=== PATIENT | female | born 1995 | race Caucasian/White ===

== ENCOUNTER 2019-08-27 18:32 | Emergency (ER) | payer BC, SELFPAY ==
[2019-08-27 18:38] VITALS: BP 114/65; PULSE 107; RESP 18; TEMP 36.8; O2SAT 99; BMI 28.1
--- NOTE | 2019-08-27 18:58 | US_ITS ---
WS: [id number] OB ultrasound, 08/27/2019 Clinical Data: Pain Comparison: None. Findings: There is a single intrauterine in a variable lie. The placenta is posterior and grade 0. Th e heart rate is 157 beats per minute. The cervix is closed. Measurements of growth and development: FL: 1.6 cm The estimated gestational age is 14w6d with an ARTURO of approximately 02/19/2020. US/ OB limited [id number] Impression: 1. Single intrauterine in a variable lie.. 2. Estimated gestational age 14w6d with an ARTURO of 02/19/2020. 3. heart rate 157 beats per minute.
--- NOTE | 2019-08-27 19:04 | ED_ITS ---
Entered by Shelly Burgos, acting as scribe for Aug 27, 2019 18:32 HPI - Female Genitourinary General: Chief complaint: Vaginal Bleeding Stated complaint: VAG BLEEDING/15 WEEKS PREG Time Seen by Provider: 08/27/19 18:56 Source: patient Mode of arrival: ambulatory Limitations: no limitations History of Present Illness: HPI Narrative: 24 yo f came to the er for vaginal bleeding. Onset was today. Pt states that she is 15 weeks , pt said that this is her 3rd A1 Pt states that she has had some cramping and bleeding that started last night. in [facility] is her ob at this time. MD elicited complaint: vaginal bleeding Pertinent past history: prior miscarriages Onset (ago): day(s) (last night) Location of symptoms: vaginal Severity: mild Quality of pain: cramping Consistency: constant Vaginal bleeding: moderate Relieving factors: none Associated symptoms: Deny headache(s), syncope or vaginal bleeding Sexual activity: No Patient : Yes (15 weeks ) Review of Systems General: Reports: other (negative unless marked) Const: Denies: fever, chills, body aches, fatigue, malaise or diaphoresis Eyes: Denies: change in vision or blurry vision ENMT: Denies: throat pain, painful swallowing, hoarseness, ear pain, ear discharge, Change in hearing or nasal discharge Card: Denies: chest pain, palpitations, irregular heart rhythm, syncope, pre- syncope, shortness of breath on exertion or shortness of breath when lying down Resp: Denies: shortness of breath, productive cough, non-productive cough, wheezing, coughing up blood or chest congestion GI: Reports: cramping : Reports: vaginal bleeding Musc: Denies: neck pain, back pain, extremity pain, extremity swelling, joint pain, joint swelling, joint warmth or joint stiffness Skin/Breast: Denies: rash, skin tenderness or yellow skin Neuro: Denies: headache, numbness in extremities, weakness in extremities, changes in sensation, lack of coordination, difficulty walking, dizziness, vertigo or confusion Endo: Denies: excessive thirst, tired all the time, cold intolerance, excessive sweating, flushing or hot flashes Rolando/Lymph: Denies: easy bruising, easy bleeding, petechiae or enlarged lymph nodes All/Imm: Denies: hives, throat swelling, tongue swelling, facial swelling or acute wheezing PFSH ED PFSH: Social History Smoking and tobacco status: never smoked Physical Exam Const: COMMON NORMALS: no apparent distress, oriented x3, no limitations, healthy appearing and well nourished EXAM LIMITATIONS: no altered mental status GENERAL APPEARANCE: cooperative, well kempt and well developed ORIENTATION/CONSCIOUSNESS: Yes awake HENMT: COMMON NORMALS: normocephalic, head/scalp atraumatic, hearing grossly normal bilaterally, external ears normal, EAC's normal, external nose normal and moist oral mucous membranes HEAD & SCALP: normal to inspection, normocephalic and atraumatic FACE & SINUS: normal facial exam and face symmetric NOSE: external nose normal and nares normal EXTERNAL EAR: Yes external ears normal EXTERNAL AUDITORY CANAL: EAC's normal MOUTH: oral and palatal mucosa normal and tongue normal Eye: COMMON NORMALS: PERRL, EOMs intact bilaterally, conjunctivae normal and no scleral icterus GENERAL EYE: normal appearance of both eyes and normal light reflex CONJUNCTIVA: Yes conjunctivae normal SCLERA: sclerae normal CORNEA: Yes corneas normal PUPIL: Yes PERRL DIRECT OPHTHALMOSCOPY: Yes normal light reflex Neck/C-Spine: COMMON NORMALS: full ROM, no lymphadenopathy, supple, no meningeal signs and no JVD GENERAL: Yes normal visual inspection and Yes trachea midline CERVICAL SPINE: Yes cervical ROM normal Chest: COMMONS NORMALS: inspection of chest normal and palpation of chest normal Resp: COMMON NORMALS: normal respiratory effort, no retractions, no use of accessory muscles and clear to auscultation bilaterally EFFORT & INSPECTION: Yes able to speak in complete sentences AUSCULTATION: clear to auscultation bilaterally Cardio: COMMON NORMALS: no JVD, regular rate, regular rhythm, S1 normal heart sound, S2 normal heart sound, no gallops, no clicks, no murmurs and no rub JUGULAR VENOUS DISTENTION: no JVD RATE: regular rate RHYTHM: regular rhythm HEART SOUNDS: S1 normal and S2 normal GI: COMMON NORMALS: soft to palpation, non-tender, no hepatosplenomegaly and no masses INSPECTION: Yes normal to inspection PALPATION: Yes soft and Yes no hepatosplenomegaly : COMMON NORMALS: Yes no CVA tenderness and Yes bimanual exam normal BLADDER/KIDNEY EXAM: Yes no CVA tenderness SPECULUM EXAM - VAGINA: No vaginal bleeding SPECULUM EXAM - CERVIX: No cervical os open, Yes cervical os closed, No cervical bleeding, Yes mucoid cervix, No abnormal cervical discharge and No cervical tenderness BIMANUAL EXAM - VAGINA & UTERUS: Yes normal bimanual exam, Yes normal vaginal palpation, Yes normal cervical palpation, No cervical motion tenderness, No cervical tenderness and Yes other (Gravid uterus present.) OB/EXTERNAL & SPECULUM: No cervical os open and vaginal bleeding Back/Pelvis: COMMON NORMALS: no CVA tenderness, thoracic and lumbar spine normal to inspection, no thoracic nor lumbar tenderness and thoraco-lumbar ROM normal Extremity: COMMON NORMALS: normal to inspection, full ROM, normal capillary refill, no joint enlargement, no clubbing, cyanosis or edema and no calf tenderness Neuro: COMMON NORMALS: oriented x3, CN's II-XII intact bilaterally, moves all extremities, no focal motor deficits and no sensory deficits noted MENINGEAL SIGNS: Yes no meningeal signs Psych: COMMON NORMALS: mental status grossly normal, thought process normal, cooperative, affect normal, speech normal and activity/motor behavior normal APPEARANCE: Yes well kempt SPEECH: Yes normal speech THOUGHT PROCESS: normal thought process Skin: COMMON NORMALS: no rashes or lesions noted, skin turgor normal, no jaundice, no petechiae and no mottling GENERAL SKIN EXAM: no rashes or lesions noted and turgor normal Course Vital Signs: Vital signs: Vital Signs Temperature 98.2 F 08/27/19 18:38 Pulse Rate 107 H 08/27/19 18:38 Respiratory Rate 18 08/27/19 18:38 Blood Pressure 114/65 08/27/19 18:38 Pulse Oximetry 99 08/27/19 18:38 MDM - Female MDM Narrative: Medical decision making narrative: aJcki is a 24-year-old female who comes in with 8 hours of cramping lower pelvic pain and bleeding. The patient states the bleeding has stopped but she still has intermittent midline cramping. The pain has been intermittent and has improved since receiving IV fluids here. Patient states that overall she feels much better. I reviewed the case in full with Dr. Zamora who agrees that her ultrasound findings are reassuring and the right-sided hydronephrosis is a normal finding in . The patient's urine is contaminated so we will cover her with Keflex for possible asymptomatic bacteriuria of . The patient again feels much better and wants to follow-up with either Dr. Zamora or her doctor. We have reviewed with her at length the signs and symptoms for which to return to the ER and she states she understands all these and will follow-up as directed or return if needed. I see no evidence of ectopic , incomplete miscarriage or other life-threatening problem at this time. Differential Diagnosis: Differential diagnosis: Likely abdominal pain, acute appendicitis, calculus of kidney, constipation, diverticulitis, endometriosis, gastroenteritis, pancreatitis and small bowel obstruction Lab Data: Attestation: I reviewed the patient's lab results. Labs: Lab Results 08/27/19 08/27/19 08/27/19 Range/Units 19:03 19:03 19:05 WBC 7.9 (4.0-10.0) 10^3/ uL RBC 4.17 (4.1-5.3) 10^6/u L Hgb 11.9 (11.5-15.3) g/dL Hct 36.5 L (37.0-47.0) % MCV 87.5 (81-99) fL MCH 28.5 (28.0-34.0) pg MCHC 32.6 (30.0-36.0) g/dL RDW 12.6 (12.1-15.1) % Plt Count 205 (130-400) 10^3/c mm MPV 10.5 H (7.4-10.4) fL Neut % (Auto) 65.6 % Lymph % (Auto) 29.1 % Cotton % (Auto) 3.7 % Eos % (Auto) 0.9 % Baso % (Auto) 0.3 % Neut # (Auto) 5.2 (1.8-7.7) 10^3/u L Lymph # (Auto) 2.3 (0.8-4.8) 10^3/u L Cotton # (Auto) 0.3 (0.2-0.9) 10^3/u L Eos # (Auto) 0.1 (0.0-0.8) 10^3/u L Baso # (Auto) 0.0 (0.0-0.1) 10^3/u L Nucleated RBC % (a uto) 0 % Nucleated RBCs # 0.0 /100WBC Sodium 136 (136-145) mmol/L Potassium 3.6 (3.5-5.1) mmol/L Chloride 100 (98-107) mmol/L Carbon Dioxide 23 (22-29) mmol/L Anion Gap 16.6 (5-19) BUN 6 (6-20) mg/dL Creatinine 0.5 (0.5-0.9) mg/dL GFR Calculation 152.9 H (90-130) mL/min Glucose 118 H (65-115) mg/dL Calcium 9.4 (8.5-10.5) mg/dL Total Bilirubin 0.2 (0.15-1.2) mg/dL AST 20 (0-32) U/L ALT 24 (0-33) U/L Alkaline Phosphata se 61 (35-105) IU/L Total Protein 6.6 (6.6-8.7) g/dL Albumin 3.8 (3.5-5.2) g/dL Globulin 2.8 (1.3-4.6) g/dL Ser , [place] [address].00 mIU/mL Urine Color (Yellow) Urine Appearance (CLEAR) Urine pH (5-7) Ur Specific Gravit y (1.005-1.030) Urine Protein (Negative) Urine Glucose (UA) (Normal) Urine Ketones (Negative) Urine Blood (Negative) Urine Nitrate (Negative) Urine Bilirubin (NEGATIVE) Urine Urobilinogen (Negative) mg/dL Ur Leukocyte Mera ase (Negative) Urine RBC (0-2) /hpf Urine WBC (0-5) /hpf Ur Squamous Epith Cells (0-5) Urine Bacteria (NONE) Urine Mucus Blood Type A Positive 08/27/19 Range/Units 19:35 WBC (4.0-10.0) 10^3/ uL RBC (4.1-5.3) 10^6/u L Hgb (11.5-15.3) g/dL Hct (37.0-47.0) % MCV (81-99) fL MCH (28.0-34.0) pg MCHC (30.0-36.0) g/dL RDW (12.1-15.1) % Plt Count (130-400) 10^3/c mm MPV (7.4-10.4) fL Neut % (Auto) % Lymph % (Auto) % Cotton % (Auto) % Eos % (Auto) % Baso % (Auto) % Neut # (Auto) (1.8-7.7) 10^3/u L Lymph # (Auto) (0.8-4.8) 10^3/u L Cotton # (Auto) (0.2-0.9) 10^3/u L Eos # (Auto) (0.0-0.8) 10^3/u L Baso # (Auto) (0.0-0.1) 10^3/u L Nucleated RBC % (a uto) % Nucleated RBCs # /100WBC Sodium (136-145) mmol/L Potassium (3.5-5.1) mmol/L Chloride (98-107) mmol/L Carbon Dioxide (22-29) mmol/L Anion Gap (5-19) BUN (6-20) mg/dL Creatinine (0.5-0.9) mg/dL GFR Calculation (90-130) mL/min Glucose (65-115) mg/dL Calcium (8.5-10.5) mg/dL Total Bilirubin (0.15-1.2) mg/dL AST (0-32) U/L ALT (0-33) U/L Alkaline Phosphata se (35-105) IU/L Total Protein (6.6-8.7) g/dL Albumin (3.5-5.2) g/dL Globulin (1.3-4.6) g/dL Ser , Devon i-Qnt mIU/mL Urine Color Yellow (Yellow) Urine Appearance Clear (CLEAR) Urine pH 5 (5-7) Ur Specific Gravit y 1.025 (1.005-1.030) Urine Protein Neg (Negative) Urine Glucose (UA) Norm (Normal) Urine Ketones 1+ H (Negative) Urine Blood Neg (Negative) Urine Nitrate Negative (Negative) Urine Bilirubin Neg (NEGATIVE) Urine Urobilinogen 1 H (Negative) mg/dL Ur Leukocyte Mera ase Negative (Negative) Urine RBC None (0-2) /hpf Urine WBC 0-4 H (0-5) /hpf Ur Squamous Epith Cells 5-10 H (0-5) Urine Bacteria Trace (NONE) Urine Mucus 1+ Blood Type Imaging Data: US OB: Radiologist's impression: Pelvic ultrasound, technologist interpretation -15-week 0-day IUP with a heart rate of 158. No free fluid noted. Tubes and ovaries normal. All other findings normal. Please see formal report. US: Radiologist's impression: Technologist interpretation, renal ultrasound -mild right hydroureter otherwise normal. Please see formal report. Discharge Plan Discharge Patient Disposition: Home, Self-Care Clinical Impression: Threatened Qualifiers: Weeks of gestation: 15 weeks Qualified Code(s): Z3A.15 - 15 weeks gestation of Condition: Stable Prescriptions: No Action No Known Home Medications RF: 0 Discharge Orders: Discharge Order (Routine); Ordered 08/27/19 Ordered By: Edel Ramírez Referrals: Bi Zamora DO [Physician] - 1-3 days Comfort Carey [Family Provider] - Discharge Diet: Advance as tolerated Discharge Activity: Increase activity as tolerated Patient Instructions: Threatened Miscarriage (ED), (ED), Acute Nausea and Vomiting (ED), Abdominal Pain in (ED) Activity Restrictions/Additional Instructions: Please return to the ER immediately for any of the signs or symptoms listed on your discharge instruction sheets, worsening/changing of your symptoms, you are not getting better as quickly as expected, or for ANY other cause or concerns. Follow pelvic rest with no tampons, no douching or sex until released by Dr. Zamora or the [facility] TE[facility] of your choice. Return to the ER for fever, worsening pain, vaginal bleeding, lightheadedness or dizziness, you pass out or nearly pass out, or for any other cause for concern. Discharge Date/Time: 08/27/19 21:36 Coding Level of Care Code ED Residential Gas Heat Technician for Chg Fwd Exam Comprehensive The documentation recorded by the Aubrey sharma Stephanie Lyn, accurately reflects the service I personally performed and the decisions made by Desiree hair Eli N Aug 27, 2019 18:32
[2019-08-27] MEDS: sodium chloride 0.9% 1,000 ML 999 ML IV ×2 (19:12→19:58)
[2019-08-27 19:23] LABS: Basophils % 0.3 %; Eosinophils # 0.1 10^3/uL (0.0-0.8); Eosinophils % 0.9 %; Hematocrit 36.5 % (37.0-47.0); Hemoglobin 11.9 g/dL (11.5-15.3); Lymphocytes # 2.3 10^3/uL (0.8-4.8); Lymphocytes % 29.1 %; Mean Corpuscular HGB Conc 32.6 g/dL (30.0-36.0); Mean Corpuscular Hemoglobin 28.5 pg (28.0-34.0); Mean Corpuscular Volume 87.5 fL (81-99); Mean Platelet Volume 10.5 fL (7.4-10.4); Monocytes # 0.3 10^3/uL (0.2-0.9); Monocytes % 3.7 %; Neutrophils # 5.2 10^3/uL (1.8-7.7); Neutrophils % 65.6 %; Nucleated Red Blood Cells % 0 %; Platelet Count 205 10^3/cmm (130-400); Red Blood Count 4.17 10^6/uL (4.1-5.3); Red Cell Distribution Width 12.6 % (12.1-15.1); White Blood Count 7.9 10^3/uL (4.0-10.0)
[2019-08-27 19:45] LABS: Alanine Aminotransferase 24 U/L (0-33); Albumin Level 3.8 g/dL (3.5-5.2); Alkaline Phosphatase 61 IU/L (35-105); Anion Gap 16.6 (5-19); Aspartate Amino Transferase 20 U/L (0-32); Blood Urea Nitrogen 6 mg/dL (6-20); Calcium 9.4 mg/dL (8.5-10.5); Carbon Dioxide 23 mmol/L (22-29); Chloride 100 mmol/L (98-107); Globulin 2.8 g/dL (1.3-4.6); Glomerular Filtration Rate 152.9 mL/min (90-130); Glucose 118 mg/dL (65-115); Potassium 3.6 mmol/L (3.5-5.1); Sodium 136 mmol/L (136-145); Total Bilirubin 0.2 mg/dL (0.15-1.2); Total Protein 6.6 g/dL (6.6-8.7)
[2019-08-27 20:05] LABS: Bilirubin Urine Neg (NEGATIVE); Blood Urine Neg (Negative); Glucose Urine UA Norm (Normal); Ketones Urine 1+ (Negative); Leukocyte Esterase Urine Negative (Negative); Nitrate Urine Negative (Negative); Protein Urine Neg (Negative); Specific Gravity, Urine 1.025 (1.005-1.030); Urine Appearance Clear (CLEAR); Urine Color Yellow (Yellow); Urobilinogen Urine 1 mg/dL (Negative); pH Urine 5 (5-7)
[2019-08-27 20:12] LABS: Bacteria Urine TRACE; Mucus Urine 1+; WBC Urine 0-4 /hpf (0-5)
--- NOTE | 2019-08-27 20:48 | US_ITS ---
WS: [id number] ULTRASOUND RENAL TECHNIQUE: Ultrasound examination of both kidneys. CLINICAL INFORMATION: FLANK PAIN COMPARISON: None. FINDINGS: RIGHT: Mild right hydronephrosis. Echogenicity: Normal Hydronephrosis: Mild Perinephric fluid: None. Right kidney measures: 10.6 cm x 6.5 cm x 6.0 cm. LEFT: Left kidney is normal in size and appearance. Echogenicity: Normal. Hydronephrosis: None. Perinephric fluid: None. Left kidney measures: 11.7 cm x 5.1 cm x 5.4 cm. Normal visualized aorta. Normal bladder. US/US renal BI with bladder IMPRESSION: 1. Mild right hydronephrosis. 2. Left kidney is normal. 3. Normal bladder.
== END 2019-08-27 21:36 | disposition home or self-care (01) ==
PROVIDERS: Emergency Provider Emergency Medicine; Family Provider Nurse Practitioner Family
DX: O20.0 Threatened abortion (principal); Z3A.15 15 weeks gestation of pregnancy
CPT/HCPCS: 36415; 76770; 76815; 76857; 80053; 81001; 84702; 85025; 86900; 87210; 87491; 87591; 96360; 96361; 99284; J7030